=== PATIENT | female | born 1980 | race Caucasian/White ===

== ENCOUNTER → 2020-04-22 | Outpatient (CLI) | payer OTHER ==
--- NOTE | 2020-04-22 14:34 | Diagnostic Imaging Report ---
EXAMINATION: CT Abdomen Pelvis without contrast. TECHNIQUE: Multiple contiguous axial images were obtained through the abdomen and pelvis without the use of intravenous contrast. All CT scans use one or more of the following dose optimizing techniques: automated exposure control, MA and/or KvP adjustment based on a patient size and exam type, or iterative reconstruction. HISTORY: Back pain, fever. COMPARISON: None available. FINDINGS: Lung bases: The lung bases are clear. Solid organs: Diffuse hypoattenuation of the liver which can be seen with hepatic steatosis. The gallbladder is surgically absent. There is no biliary ductal dilation. Pancreas is normal. Spleen is normal. Adrenal glands are normal. There is a 5.6 cm exophytic lesion arising from the posterior left kidney with Hounsfield units slightly greater than that of simple fluid. No hydronephrosis. No visualized renal calculus. Bowel: The stomach and small bowel are normal without obstruction. The colon is unremarkable. The appendix is not visualized but may be surgically absent, as there is suggestion of a surgical staple line in its expected location. Peritoneum: There is no intraperitoneal free fluid or free air. There is mild mesenteric stranding within the right lower quadrant with a few prominent lymph nodes which are not pathologically enlarged. Vasculature: Normal without aneurysm. Musculoskeletal: No suspicious osseous lesion or compression fracture. Pelvis: The uterus is surgically absent. No adnexal mass. The urinary bladder is normal. IMPRESSION: 1. No visualized renal calculus or hydronephrosis. 2. Mild mesenteric stranding with a few prominent lymph nodes in the right lower quadrant. This finding is nonspecific but could be seen with mesenteric adenitis in the appropriate clinical setting. 3. Hepatic steatosis. 4. An indeterminate 5.6 cm exophytic lesion arising from the posterior left kidney. Consider better characterization with renal ultrasound or MRI of the kidneys with IV contrast. Dictated by: Dictated on workstation # [id number]
== END ==
LOC: RAD FS 13:29
PROVIDERS: ATTEND Nurse Practitioner Family
DX: M54.9 Dorsalgia, unspecified (principal); K76.0 Fatty (change of) liver, not elsewhere classified; R59.0 Localized enlarged lymph nodes; R50.9 Fever, unspecified
CPT/HCPCS: 74176

== ENCOUNTER → 2020-04-23 | Outpatient (CLI) | payer OTHER ==
[2020-04-23 11:20] LABS: BILIRUBIN,URINE NEGATIVE (NEGATIVE); COLOR,URINE YELLOW; GLUCOSE, URINE (UA) NEGATIVE (NEGATIVE); KETONES,URINE NEGATIVE (NEGATIVE); NITRITE,URINE NEGATIVE (NEGATIVE); PH,URINE 5.5 (5-9); PROTEIN,URINE NEGATIVE (NEGATIVE)
[2020-04-23 11:21] LABS: BACTERIA,URINE NEGATIVE /HPF; LEUKOCYTE ESTERASE ,URINE NEGATIVE (NEGATIVE); RENAL EPITHELIAL CELLS,URINE RARE /HPF; WBC,URINE RARE /HPF
[2020-04-23 11:22] LABS: HEMATOCRIT 36 % (35-52); HEMOGLOBIN 11.5 G/DL (11.5-16.0); LYMPHOCYTES % (AUTO) 25 % (12-44); MEAN CORPUSCULAR HEMOGLOBIN 27 PG (25-34); MEAN CORPUSCULAR HGB CONC 32 G/DL (32-36); MEAN CORPUSCULAR VOLUME 82 FL (80-99); MEAN PLATELET VOLUME 11.4 FL (7.4-10.4); MONOCYTES % (AUTO) 9 % (0-12); NEUTROPHILS % (AUTO) 64 % (42-75); PLATELET COUNT 231 10^3/uL (130-400); WHITE BLOOD COUNT 6.5 10^3/uL (4.3-11.0)
[2020-04-23 11:23] LABS: BASOPHILS % (AUTO) 0 % (0-10); EOSINOPHILS # (AUTO) 0.1 10^3/uL (0.0-0.3); EOSINOPHILS % (AUTO) 1 % (0-10); LYMPHOCYTES # (AUTO) 1.6 X 10^3 (1.0-4.0); MONOCYTES # (AUTO) 0.6 X 10^3 (0.0-1.0); NEUTROPHILS # (AUTO) 4.2 X 10^3 (1.8-7.8)
== END ==
LOC: LAB FS 10:49
PROVIDERS: ATTEND Nurse Practitioner Family
DX: D72.829 Elevated white blood cell count, unspecified (principal)
CPT/HCPCS: 36415; 81000; 85025; 87088

== ENCOUNTER 2020-05-10 16:11 | Emergency (ER) | payer OTHER ==
--- NOTE | 2020-05-10 16:34 | ED Abdominal Pain ---
General Chief Complaint: Abdominal/GI Problems Stated Complaint: ABD PAIN, DIARRHEA, COUGH Source of Information: Patient History of Present Illness Date Seen by Provider: May 10, 2020 Time Seen by Provider: 16:23 40-year-old female with a past medical history significant for Niesen fundoplication presenting to the emergency department with the complaints of reflux-like symptoms. Patient states for the past 2 days she has had epigastric and esophageal burning that worsens with eating. She has also had associated nausea without vomiting. She notes that she has not vomited since her Niesen fundoplication in 2006. She took Zofran, Carafate, Pepcid prior to coming in the emergency department over the past 2 days with no relief of her symptoms. She notes intermittent chronic reflux-like symptoms, but typically the symptoms resolve with her home therapies. She does note that her previous episodes regarding the burning sensation in her epigastric and throat have felt similar in the past with other episodes. She denies fever. She has dumping syndrome and has persistent diarrhea chronically which is unchanged for her at this time. Of note she did test positive for Covid-19 11 days ago. She reports her only COVID-19 symptoms was a cough. She was started on dexamethasone and aspirin and has been doing well since then. She denies alcohol use, stopped smoking 4 years ago, patient is currently employed as a nurse at the [employer]. No known cardiac history. She denies chest pain, dyspnea.Patient notes decreased appetite and has been consuming only small amounts of liquid food over the past 2 days. Previous surgical history includes appendectomy, cholecystectomy. Allergies and Home Medications Allergies Coded Allergies: No Known Drug Allergies (Unverified , 05/10/20) Home Medications Ondansetron 4 Mg Tab.rapdis, 4 MG PO Q6H PRN for NAUSEA/VOMITING Prescribed by: SUZY THAYER on 05/10/201917 Patient Home Medication List Home Medication List Reviewed: Yes Review of Systems Review of Systems Constitutional: see HPI, weakness Respiratory: Cough Cardiovascular: Denies Chest Pain Gastrointestinal: Abdominal Pain, Diarrhea, Nausea All Other Systems Reviewed Negative Unless Noted: Yes Past Rzhwiql-Pepkzu-Cctxng Hx Patient Social History Recent Foreign Travel: No Contact w/Someone Who Travel: No Physical Exam Vital Signs Vital Signs - First Documented 05/10/20 16:40 Temp 37.0 Pulse 86 Resp 18 B/P (MAP) 148/80 (102) Pulse Ox 100 O2 Delivery Room Air Capillary Refill : Height/Weight/BMI Height: '" Weight: lbs. oz. kg; BMI Method: General Appearance: WD/WN, no apparent distress Neck: supple Respiratory: no respiratory distress, no accessory muscle use Cardiovascular: regular rate, rhythm Gastrointestinal: normal bowel sounds, non tender, soft, no organomegaly, no pulsatile mass Rectal: deferred Extremities: normal inspection Neurologic/Psychiatric: alert, normal mood/affect Skin: normal color, warm/dry Progress/Results/Core Measures Results/Orders Lab Results Laboratory Tests Test 05/10/20 16:49 05/10/20 17:34 Range/Units White Blood Count 8.5 4.3-11.0 10^3/uL Red Blood Count 5.26 4.35-5.85 10^6/uL Hemoglobin 13.9 11.5-16.0 G/DL Hematocrit 43 35-52 % Mean Corpuscular Volume 81 80-99 FL Mean Corpuscular Hemoglobin 26 25-34 PG Mean Corpuscular Hemoglobin Concent 33 32-36 G/DL Red Cell Distribution Width 14.1 10.0-14.5 % Platelet Count 243 130-400 10^3/uL Mean Platelet Volume 11.7 H 7.4-10.4 FL Immature Granulocyte % (Auto) 1 % Neutrophils (%) (Auto) 62 42-75 % Lymphocytes (%) (Auto) 28 12-44 % Monocytes (%) (Auto) 9 0-12 % Eosinophils (%) (Auto) 0 0-10 % Basophils (%) (Auto) 0 0-10 % Neutrophils # (Auto) 5.3 1.8-7.8 X 10^3 Lymphocytes # (Auto) 2.4 1.0-4.0 X 10^3 Monocytes # (Auto) 0.8 0.0-1.0 X 10^3 Eosinophils # (Auto) 0.0 0.0-0.3 10^3/uL Basophils # (Auto) 0.0 0.0-0.1 10^3/uL Immature Granulocyte # (Auto) 0.1 0.0-0.1 10^3/uL Sodium Level 139 135-145 MMOL/L Potassium Level 3.3 L 3.6-5.0 MMOL/L Chloride Level 100 98-107 MMOL/L Carbon Dioxide Level 24 21-32 MMOL/L Anion Gap 15 H 5-14 MMOL/L Blood Urea Nitrogen 8 7-18 MG/DL Creatinine 0.69 0.60-1.30 MG/DL Estimat Glomerular Filtration Rate > 60 BUN/Creatinine Ratio 12 Glucose Level 107 H 70-105 MG/DL Calcium Level 9.6 8.5-10.1 MG/DL Corrected Calcium 8.5-10.1 MG/DL Total Bilirubin 0.3 0.1-1.0 MG/DL Aspartate Amino Transf (AST/SGOT) 65 H 5-34 U/L Alanine Aminotransferase (ALT/SGPT) 126 H 0-55 U/L Alkaline Phosphatase 81 40-136 U/L Troponin I < 0.30 <0.30 NG/ML Total Protein 7.9 6.4-8.2 GM/DL Albumin 4.7 H 3.2-4.5 GM/DL Lipase 51 8-78 U/L Serum Test, Qualitative NEGATIVE NEGATIVE Urine Color YELLOW Urine Clarity CLEAR Urine pH 6.5 5-9 Urine Specific [place] <1.005 1.016-1.022 Urine Protein NEGATIVE NEGATIVE Urine Glucose (UA) NEGATIVE NEGATIVE Urine Ketones NEGATIVE NEGATIVE Urine Nitrite NEGATIVE NEGATIVE Urine Bilirubin NEGATIVE NEGATIVE Urine Urobilinogen 0.2 < = 1.0 MG/DL Urine Leukocyte Esterase TRACE H NEGATIVE Urine RBC (Auto) TRACE H NEGATIVE Urine RBC RARE /HPF Urine WBC 0-2 /HPF Urine Squamous Epithelial Cells 0-2 /HPF Urine Crystals NONE /LPF Urine Bacteria NONE /HPF Urine Casts NONE /LPF Urine Mucus NEGATIVE /LPF Urine Culture Indicated NO My Orders Orders - SUZY THAYER MD Comprehensive Metabolic Panel (05/10/20 16:42) Lipase (05/10/20 16:42) Hcg,Qualitative Serum (05/10/20 16:42) Ed Iv/Invasive Line Start (05/10/20 16:42) Cbc With Automated Diff (05/10/20 16:42) Ns Iv 1000 Ml (Sodium Chloride 0.9%) (05/10/20 16:45) Ondansetron Injection (Zofran Injectio (05/10/20 16:45) Lidocaine 2% Viscous 15 Ml (Xylocaine Vi (05/10/20 16:45) Antacid Suspension (Mylanta Suspension (05/10/20 16:45) Famotidine Injection (Pepcid Injection) (05/10/20 16:42) Troponin I Fs (05/10/20 16:48) Ekg Tracing (05/10/20 16:48) Acetone,Urine (05/10/20 17:27) D5 1/2 Ns 1000 Ml Iv Solution (Dextrose (05/10/20 17:30) Potassium Chloride (Tablet) (K Dur Table (05/10/20 17:30) Ua Culture If Indicated (05/10/20 17:28) Medications Given in ED Current Medications Medications Dose Ordered Sig/Denice Route Start Time Stop Time Status Last Admin Dose Admin Al Hydrox/Mg Hydrox/Simethicone 30 ml ONCE ONCE PO 05/10/20 16:45 05/10/20 16:47 DC 05/10/20 17:00 30 ML Dextrose/Sodium Chloride 1,000 ml @ 250 mls/hr Q4H ONCE IV 05/10/20 17:30 05/10/20 19:16 DC 05/10/20 18:34 250 MLS/HR Lidocaine HCl 15 ml ONCE ONCE PO 05/10/20 16:45 05/10/20 16:47 DC 05/10/20 17:00 15 ML Ondansetron HCl 4 mg ONCE ONCE IVP 05/10/20 16:45 05/10/20 16:47 DC 05/10/20 16:59 4 MG Potassium Chloride 40 meq ONCE ONCE PO 05/10/20 17:30 05/10/20 17:34 DC 05/10/20 18:35 40 MEQ Vital Signs/I&O 05/10/20 05/10/20 16:40 19:16 Temp 37.0 37.0 Pulse 86 82 Resp 18 16 B/P (MAP) 148/80 (102) 128/86 (102) Pulse Ox 100 100 O2 Delivery Room Air Room Air Progress Progress Note : Progress Note Patient's examination was reassuring. She had reassuring vital signs. Symptoms sound to be fairly consistent with esophageal reflux disease and consistent with her previous episodes, but just more severe. Symptomatic medications were ordered including 1 L normal saline, Zofran, oral Mylanta and lidocaine. Patient was recently started on Decadron and aspirin for her Covid infection which could be contributing to possible gastritis. She had a soft abdomen without tenderness, guarding or rigidity. Previous surgical history including appendectomy and cholecystectomy. Low suspicion for intra-abdominal etiology. Will hold on obtaining CT scan at this time. Laboratory work was ordered including basic labs, lipase, EKG and troponin. Low suspicion for ACS. 1736: Labs consistent wit an elevated anion gap, glucose of 107, slightly elevated LFTs likely fatty liver. She has soft abdominal examination. 40 mEq of oral potassium was ordered along with 500 cc of D5 half NS. 1824: Patient was reassessed and reported that her symptoms had improved. She still did have some epigastric burning. I suspect her steroids and aspirin are likely contributing. Given that she has nearly completely recovered from her Covid infection I instructed her to discontinue the Decadron and aspirin as this could be contributing to gastritis. Patient was ready to be discharged home and will follow up with her primary care provider as needed. I instructed her to discontinue the aspirin and Decadron. She was continue to use her home medications. I refilled her Zofran prescription. All questions were answered prior to discharge. Patient was in agreement with the plan of care. EKG : Comment EKG obtained at 1649 on 05/10/[address] Suzy Thayer at 1658 significant for sinus rhythm rate of 76, QTc of 478, normal QRS, normal AL, no acute ischemic changes, normal axis, no evidence of ventricular hypertrophy. Departure Impression Primary Impression: Reflux gastritis Additional Impression: Dehydration Disposition: 01 HOME, SELF-CARE Condition: Improved Departure-Patient Inst. Decision time for Depature: 19:13 Referrals: CARLOS HUGO APRN (PCP/Family) Primary Care Physician Patient Instructions: Acid Reflux and GERD in Adults (DC) Add. Discharge Instructions: You were seen in the emergency department for abdominal pain, nausea. Your symptoms are likely due to reflux and possibly gastritis which is inflammation of the stomach lining. This could be due to your recent aspirin and steroid use which you are to discontinue at this time. Please continue using your medications that you have been using including Carafate, Pepcid, lansoprazole, Maalox, Tums. Please follow-up with your primary care provider next week if your symptoms have not improved. You likely are dehydrated and were given IV fluids in the emergency department. If you develop any new or concerning symptoms, please contact your primary care provider or return to the emergency department immediately to be evaluated. All discharge instructions reviewed with patient and/or family. Voiced understanding. Scripts Ondansetron (Ondansetron Odt) 4 Mg Tab.rapdis 4 MG PO Q6H PRN for NAUSEA/VOMITING, #8 TAB 0 Refills Prov: SUZY THAYER MD 05/10/20 SUZY THAYER MD May 10, 2020 16:34
[2020-05-10] MEDS ORDERED: FAMOTIDINE 20MG/2ML IV (PEPCID) IV STA (16:42)
[2020-05-10] MEDS ORDERED: ONDANSETRON 4 MG/2 ML (SDV) Z0FRAN IVP ONE (16:45)
[2020-05-10] MEDS ORDERED: ANTACID SUSP 30 ML UDC (MYLANTA) PO ONE (16:45)
[2020-05-10] MEDS ORDERED: LIDOCAINE 2% VISCOUS 15 ML UDC PO ONE (16:45)
[2020-05-10] MEDS ORDERED: NS IV 1000 ML 1,000 ML IV SCH (16:45)
[2020-05-10 17:00] LABS: HEMATOCRIT 43 % (35-52); HEMOGLOBIN 13.9 G/DL (11.5-16.0); MEAN CORPUSCULAR HEMOGLOBIN 26 PG (25-34); WHITE BLOOD COUNT 8.5 10^3/uL (4.3-11.0)
[2020-05-10 17:01] LABS: BASOPHILS % (AUTO) 0 % (0-10); EOSINOPHILS % (AUTO) 0 % (0-10); LYMPHOCYTES # (AUTO) 2.4 X 10^3 (1.0-4.0); LYMPHOCYTES % (AUTO) 28 % (12-44); MEAN CORPUSCULAR HGB CONC 33 G/DL (32-36); MEAN CORPUSCULAR VOLUME 81 FL (80-99); MEAN PLATELET VOLUME 11.7 FL (7.4-10.4); MONOCYTES # (AUTO) 0.8 X 10^3 (0.0-1.0); MONOCYTES % (AUTO) 9 % (0-12); NEUTROPHILS # (AUTO) 5.3 X 10^3 (1.8-7.8); NEUTROPHILS % (AUTO) 62 % (42-75); PLATELET COUNT 243 10^3/uL (130-400)
[2020-05-10 17:14] LABS: ALANINE AMINOTRANSFERASE 126 U/L (0-55); ALBUMIN 4.7 GM/DL (3.2-4.5); ALKALINE PHOSPHATASE 81 U/L (40-136); BILIRUBIN,TOTAL 0.3 MG/DL (0.1-1.0); BUN/CREATININE RATIO 12; CALCIUM 9.6 MG/DL (8.5-10.1); CARBON DIOXIDE 24 MMOL/L (21-32); CHLORIDE 100 MMOL/L (98-107); CREATININE SERUM 0.69 MG/DL (0.60-1.30); GFR ESTIMATED > 60; GLUCOSE 107 MG/DL (70-105); LIPASE 51 U/L (8-78); POTASSIUM 3.3 MMOL/L (3.6-5.0); SODIUM 139 MMOL/L (135-145); TOTAL PROTEIN 7.9 GM/DL (6.4-8.2)
[2020-05-10] MEDS ORDERED: KCL 20 MEQ TAB (K-DUR) PO ONE (17:30)
[2020-05-10] MEDS ORDERED: D5 1/2 NS 1000 ML IV SOLUTION 1,000 ML IV ONE (17:30)
[2020-05-10 18:32] LABS: BILIRUBIN,URINE NEGATIVE (NEGATIVE); CLARITY,URINE CLEAR; COLOR,URINE YELLOW; GLUCOSE, URINE (UA) NEGATIVE (NEGATIVE); KETONES,URINE NEGATIVE (NEGATIVE); LEUKOCYTE ESTERASE ,URINE TRACE (NEGATIVE); NITRITE,URINE NEGATIVE (NEGATIVE); PH,URINE 6.5 (5-9); PROTEIN,URINE NEGATIVE (NEGATIVE); RBC,URINE RARE /HPF; SQUAMOUS EPITHELIAL CELL,UR 0-2 /HPF; WBC,URINE 0-2 /HPF
[2020-05-10 19:16] VITALS: BP 128/86
[2020-05-10] MEDS ORDERED: ONDA4TAB11 PO (19:18)
== END 2020-05-10 19:16 | disposition home or self-care (01) ==
LOC: EDUNIT# 16:11 → ER 16:12 → ER FS 19:16
DX: K29.60 Other gastritis without bleeding (principal); E86.0 Dehydration; Z87.891 Personal history of nicotine dependence
CPT/HCPCS: 36415; 80053; 81000; 83690; 84484; 84703; 85025; 93005

== ENCOUNTER → 2020-05-14 | Outpatient (CLI) | payer OTHER ==
[~2020-05-14] MED LIST: ONDA4TAB11 PO
[2020-05-14 12:45] LABS: BASOPHILS % (AUTO) 0 % (0-10); EOSINOPHILS % (AUTO) 2 % (0-10); HEMATOCRIT 39 % (35-52); HEMOGLOBIN 12.5 G/DL (11.5-16.0); LYMPHOCYTES # (AUTO) 2.3 X 10^3 (1.0-4.0); LYMPHOCYTES % (AUTO) 27 % (12-44); MEAN CORPUSCULAR HEMOGLOBIN 26 PG (25-34); MEAN CORPUSCULAR HGB CONC 32 G/DL (32-36); MEAN CORPUSCULAR VOLUME 82 FL (80-99); MEAN PLATELET VOLUME 11.6 FL (7.4-10.4); MONOCYTES # (AUTO) 0.6 X 10^3 (0.0-1.0); MONOCYTES % (AUTO) 7 % (0-12); NEUTROPHILS # (AUTO) 5.6 X 10^3 (1.8-7.8); NEUTROPHILS % (AUTO) 64 % (42-75); PLATELET COUNT 256 10^3/uL (130-400); WHITE BLOOD COUNT 8.8 10^3/uL (4.3-11.0)
[2020-05-14 12:46] LABS: EOSINOPHILS # (AUTO) 0.2 10^3/uL (0.0-0.3)
[2020-05-14 13:05] LABS: BUN/CREATININE RATIO 8; CALCIUM 10.1 MG/DL (8.5-10.1); CARBON DIOXIDE 26 MMOL/L (21-32); CHLORIDE 103 MMOL/L (98-107); CREATININE SERUM 0.62 MG/DL (0.60-1.30); GFR ESTIMATED > 60; GLUCOSE 117 MG/DL (70-105); POTASSIUM 4.2 MMOL/L (3.6-5.0); SODIUM 140 MMOL/L (135-145)
== END ==
LOC: LAB FS 12:27
PROVIDERS: ATTEND Nurse Practitioner Family
DX: R19.7 Diarrhea, unspecified (principal)
CPT/HCPCS: 36415; 80048; 84443; 85025

== ENCOUNTER 2020-10-16 10:24 | Outpatient (CLI) | payer OTHER ==
[2020-10-16] MEDS ORDERED: MTP25TSR PO (15:00)
[2020-10-16] MEDS ORDERED: PANT40TA52 PO (15:00)
[2020-10-16] MEDS ORDERED: HYDR25TA4 PO (15:00)
[2020-10-16] MEDS ORDERED: SEMA1PEN3 SQ (15:00)
[2020-10-16] MEDS ORDERED: METF-399 PO (15:00)
[2020-10-16] MEDS ORDERED: SUCR1TAB PO (15:00)
== END 2020-10-23 09:00 | disposition home or self-care (01) ==
LOC: PREOP 10:24
PROVIDERS: ATTEND Surgery
DX: Z01.818 Encounter for other preprocedural examination (principal); Z12.11 Encounter for screening for malignant neoplasm of colon; K21.9 Gastro-esophageal reflux disease without esophagitis; R19.4 Change in bowel habit

== ENCOUNTER 2020-10-24 11:17 | Day surgery (SDC) | payer OTHER ==
[~2020-10-24] VITALS: Ht 170.2 cm; Wt 131.5 kg
[~2020-10-24 11:17] MED LIST changes: +HYDR25TA4 PO; +METF-399 PO; +MTP25TSR PO; +PANT40TA52 PO; +SEMA1PEN3 SQ; +SUCR1TAB PO
[2020-10-24] MEDS ORDERED: LACTATED RINGERS 1,000 ML IV STA (11:46)
[2020-10-24] MEDS ORDERED: LACTATED RINGERS 1,000 ML IV ONE (11:46)
--- NOTE | 2020-10-24 11:46 | Conscious Sedation/ASA ---
Conscious Sedation Pre-Proced ASA Score 2 For ASA 3 and 4: Consider anesthesia and medical clearance. Also, for patients with a history of failed moderate sedation consider anesthesia. Airway Lungs Heart ASA score ASA 1: a normal healthy patient ASA 2: a patient with a mild systemic disease (mid diabetes, controlled hypertension, obesity ASA 3: a patient with a severe systemic disease that limits activity (angina, COPD, prior Myocardial infarction) ASA 4: a patient with an incapacitating disease that is a constant threat to life (CHF, renal failure) ASA 5: a moribund patient not expected to survive 24 hrs. (ruptured aneurysm) ASA 6: a declared brain- patient whose organs are being harvested. For emergent operations, add the letter E after the classification Mallampati Classification Grade 2 Sedation Plan Analgesia, Amnesia, Plan communicated to team members, Discussed options with patient/fam, Discussed risks with patient/fam The patient is an appropriate candidate to undergo the planned procedure, sedation, and anesthesia. The patient immediately re-assessed prior to indication. SHAQUILLE SWANSON MD October 24, 2020 11:46
--- NOTE | 2020-10-24 11:48 | Progress Note-Pre Operative ---
Pre-Operative Progress Note H&P Reviewed The H&P was reviewed, patient examined and no changes noted. Date Seen by Provider: October 24, 2020 Time Seen by Provider: 11:30 Date H&P Reviewed: October 24, 2020 Time H&P Reviewed: :30 Pre-Operative Diagnosis: GERD, change bowel habits SHAQUILLE SWANSON MD October 24, 2020 11:48
--- NOTE | 2020-10-24 11:49 | Discharge Inst-Surgical ---
D/C Lap Instructions-KIDO New, Converted, or Re-Newed RX: RX on Chart Follow Up Appt in 2 weeks Activity as tolerated High Fiber Diet 25g or more per day Avoid Alcohol, Caffeine, Spicy [place] and Acid foods. Drink 64 fluid oz or more of fluids per day. Symptoms to Report: Fever over 101 degree F, Nausea/Vomiting If any problems/questions: Contact your physician or go to Emergency Room SHAQUILLE SWANSON MD October 24, 2020 11:49
[2020-10-24 12:00] VITALS: BP 138/75
[2020-10-24] MEDS ORDERED: ACETAMINOPHEN 325 MG TABLET PO PRN (12:00)
[2020-10-24] MEDS ORDERED: HYDROcodone/APAP 5 MG/325 MG (LORTAB) TAB PO PRN (12:00)
[2020-10-24] MEDS ORDERED: LIDOCAINE JELLY 2% 6 ML SYRINGE MM PRN (12:00)
[2020-10-24] MEDS ORDERED: morphine INJ 10 MG/ML 1ML (SYR OR VIAL) IVP PRN ×2 (12:00)
[2020-10-24] MEDS ORDERED: HURRICAINE EXT TUBE (BENZOCAINE) XX PRN (12:00)
[2020-10-24] MEDS ORDERED: ONDANSETRON 4 MG/2 ML (SDV) Z0FRAN IVP PRN (12:00)
[2020-10-24] MEDS ORDERED: PROPOFOL INJECTION 50 ML IV ONE ×2 (12:38→13:22)
[2020-10-24] MEDS ORDERED: MIDAZOLAM 5 MG/5 ML (VERSED) VIAL ONE (12:38)
[2020-10-24] MEDS ORDERED: LIDOCAINE JELLY 2% 6 ML SYRINGE ONE (13:14)
[2020-10-24 13:50] VITALS: BP 110/62
[2020-10-24 13:55] VITALS: BP 137/92
--- NOTE | 2020-10-24 14:19 | Progress Note-Post Operative ---
Post-Operative Progess Note Surgeon (s)/Restaurant Delivery Driver (s) Surgeon SHAQUILLE SWANSON MD Restaurant Delivery Driver: none Pre-Operative Diagnosis GERD, change bowel habits Post-Operative Diagnosis reflux esophagitis(stage 2), mild distal esophageal stricture, moderate gastritis. normal colon and rectum Procedure & Operative Findings Date of Procedure 10/24/20 Procedure Performed/Findings EGD with bx and balloon dilatation. colonoscopy. Anesthesia Type mac Estimated Blood Loss Estimated blood loss (mL): minimal Specimens/Packing Specimens Removed ge jxn, antrum SHAQUILLE SWANSON MD October 24, 2020 14:19
[2020-10-24 14:20] VITALS: BP 124/62
[2020-10-24 14:21] VITALS: BP 137/92
[2020-10-24 14:25] VITALS: BP 137/92
--- NOTE | 2020-10-24 14:54 | Anesthesia-General Post-Op ---
MAC Patient Condition Mental Status/LOC: Same as Preop Cardiovascular: Satisfactory Nausea/Vomiting: Absent Respiratory: Satisfactory Pain: Controlled Complications: Absent Post Op Complications Complications None Follow Up Care/Instructions Patient Instructions None needed. Anesthesiology Discharge Order Discharge Order Patient is doing well, no complaints, stable vital signs, no apparent adverse anesthesia problems. No complications reported per nursing. SAGAR CORBETT CRNA October 24, 2020 14:54
--- NOTE | 2020-10-24 18:27 | OPERATIVE REPORT ---
DATE OF SERVICE: 10/24/2020 ATTENDING PRIMARY TOP CAGER: Alie Lebron. PREOPERATIVE DIAGNOSES: Gastroesophageal reflux disease, peptic ulcer disease with history of H. pylori gastritis, change in bowel habits. POSTOPERATIVE DIAGNOSES: Reflux esophagitis stage II, mild distal esophageal stricture, intact hiatal hernia as well as a Maureen fundoplication, moderate gastritis. No formal ulcerations. Normal colon and rectum. PROCEDURE: EGD with biopsy and balloon dilatation and colonoscopy. SURGEON: Shaquille Swanson MD. ANESTHESIA: Monitored anesthesia care. ESTIMATED BLOOD LOSS: Minimal. FINDINGS: Reflux esophagitis stage II, mild distal esophageal stricture, intact hiatal hernia as well as a Maureen fundoplication, moderate gastritis. No formal ulcerations. Normal colon and rectum. DISPOSITION: The patient tolerated the procedure well. INDICATIONS: The patient is a 40-year-old female who has had a longstanding history of gastroesophageal reflux disease and underwent a hiatal hernia repair as well as a Maureen fundoplication along with a laparoscopic cholecystectomy in 2006. She states that since that time, she has had issues with loose stools on an intermittent basis. She also states that she has had worsening episodes of gastritis with epigastric burning sensation usually at night and upon further questioning, she also reports that she has had dysphagia, specifically for dry breads and crackers as well as a lean meats. DESCRIPTION OF PROCEDURE: The patient was brought to the endoscopy suite, laid in the left lateral decubitus position with head slightly elevated. After adequate IV pain and sedative medications and monitored anesthesia care, the mouthpiece was applied. The endoscope was placed in the mouth, visualizing the pharynx and hypopharyngeal region. Vocal cords, epiglottis and vallecula identified and appeared to be normal. Endoscope was then gently intubated into the esophageal opening and esophagus insufflated. The endoscope was then advanced to the first, second and third portion of esophagus at the level of the GE junction, a reflux esophagitis stage II identified. There was a mild distal esophageal stricture also identified. The endoscope was then advanced into the stomach and endoscope retroflexed visualizing an intact previous hiatal hernia repair as well as a previous Maureen fundoplication. There was a moderate severity gastritis. There were no formal ulcerations, polyps, or any neoplasms. A biopsy was taken of the antrum to rule out H. pylori with visualization of good hemostasis. The endoscope was then advanced through the pylorus and the first and second portion of the duodenum, which appeared normal with no ulcerations or distal obstructions. We then proceeded with balloon dilatation of the distal esophageal stricture and the balloon was placed into the stomach and pulled back to the area of the stricture. We then proceeded with 2s then 4s, then 6s atmospheres of pressure or 20 mm in luminal diameter with moderate resistance and left this in place for 60 seconds. The balloon was desufflated and removed with visualization of good hemostasis as well as no mucosal tears. The endoscope was then slowly withdrawn while taking a second look and suctioning of residual air with no additional findings. A digital rectal examination was performed, which did not reveal any significant hemorrhoids. Normal sphincter tone and there were no palpable masses. The endoscope was then intubated to the anus and rectum gently insufflated. The endoscope was then advanced to the valves of [place] of the rectum with no polyps or any neoplasms identified. We then proceeded through the sigmoid colon where no diverticulosis identified. The endoscope was then advanced through the remainder of the descending, transverse and ascending colon to the cecum. These segments were normal. There were no polyps or any neoplasms identified as well as no mucosal inflammatory changes. The endoscope was then slowly withdrawn while taking a second look and suctioning of residual air with no additional findings. The patient tolerated the procedure well. We will recommend the necessary lifestyle and diet accommodation including small and more frequent meals, avoidance of eating at night as well as head elevation while lying supine. She is also on Protonix 40 mg b.i.d. which we will have her continue. She may also restart Ozempic at her previous dosage as well. For the colon we will recommend incorporation of a fiber supplement, which should equal or exceed 25 grams daily to promote soft stools on a daily basis; however, not insight liquid stools and diarrhea. We will also give her a prescription for Questran to be taken p.r.n. basis for diarrhea or postprandial diarrhea. Job ID: [id number] DocumentID: [id number] Dictated Date: 10/24/2020 13:58:18 Park Superintendent Date: 10/24/2020 18:26:34 Dictated By: SHAQUILLE SWANSON MD
== END 2020-10-24 14:25 | disposition home or self-care (01) ==
LOC: ENDO 11:17
PROVIDERS: ATTEND Surgery
DX: K21.00 Gastro-esophageal reflux disease with esophagitis, without bleeding (principal); K29.50 Unspecified chronic gastritis without bleeding; K22.2 Esophageal obstruction; K44.9 Diaphragmatic hernia without obstruction or gangrene; I10 Essential (primary) hypertension; F41.9 Anxiety disorder, unspecified; E11.9 Type 2 diabetes mellitus without complications; E66.01 Morbid (severe) obesity due to excess calories; Z68.42 Body mass index [BMI] 45.0-49.9, adult; Z79.899 Other long term (current) drug therapy
CPT/HCPCS: 82947

== ENCOUNTER 2022-08-05 09:09 | Emergency (ER) | payer OTHER ==
[~2022-08-05] VITALS: Ht 170 cm; Wt 127.0 kg
[2022-08-05 09:45] LABS: BASOPHILS % (AUTO) 0 % (0-10); EOSINOPHILS % (AUTO) 0 % (0-10); HEMATOCRIT 39 % (35-52); HEMOGLOBIN 12.5 g/dL (11.5-16.0); LYMPHOCYTES # (AUTO) 2.6 10^3/uL (1.0-4.0); LYMPHOCYTES % (AUTO) 27 % (12-44); MEAN CORPUSCULAR HEMOGLOBIN 26 pg (25-34); MEAN CORPUSCULAR HGB CONC 33 g/dL (32-36); MEAN CORPUSCULAR VOLUME 81 fL (80-99); MEAN PLATELET VOLUME 11.2 fL (9.0-12.2); MONOCYTES # (AUTO) 0.7 10^3/uL (0.0-1.0); MONOCYTES % (AUTO) 7 % (0-12); NEUTROPHILS # (AUTO) 6.4 10^3/uL (1.8-7.8); NEUTROPHILS % (AUTO) 65 % (42-75); PLATELET COUNT 317 10^3/uL (130-400); WHITE BLOOD COUNT 9.8 10^3/uL (4.3-11.0)
[2022-08-05] MEDS ORDERED: LACTATED RINGERS 1,000 ML IV ONE (09:45)
[2022-08-05 09:47] LABS: POTASSIUM 2.9 MMOL/L (3.6-5.0)
[2022-08-05 09:48] LABS: CALCIUM 10.6 MG/DL (8.5-10.1)
[2022-08-05 09:52] LABS: CREATININE SERUM 0.86 MG/DL (0.60-1.30)
[2022-08-05 09:55] LABS: MAGNESIUM 1.7 MG/DL (1.6-2.4)
[2022-08-05 10:15] LABS: TSH (THYROID ANALYZER) 1.41 UIU/ML (0.35-4.94)
--- NOTE | 2022-08-05 10:26 | ED Cardiac General ---
History of Present Illness General Chief Complaint: Cardiac/General Problems Stated Complaint: ABNORMAL EKG Nursing Triage Note: PATIENT AMBULATORY TO ROOM 5 W C/O ABNORMAL EKG AT [facility]. PATIENT STATES SHE'S ON METOPROLOL FOR ANXIETY AND HYPERTENSION. PT HAS HAD PALPITATIONS AND INCREASED HR ALL WEEK. PT RECENTLY STARTED MONJARO. HX OF PVC'S AND PAC'S. Source: patient, family, old records Exam Limitations: no limitations (RODY MAI) History of Present Illness Date Seen by Provider: Aug 05, 2022 Time Seen by Provider: 09:20 Initial Comments Ms. Erwin is 42 yo F with PMH significant for T2DM, HTN and GERD who presents today with 5 day Hx of tachycardia with palpatations along with sub-zypoid pressure & discomfort following self-injection with Mounjaro Satru evening. She has also been experiencing frequent diarrhea while taking Mounjaro and has previously required fluid resuscitation and drank a sports drink to correct her current issue with no noticeable improvement. The Pt visited her PCP Alie Rodriguez this morning with her concerns where an EKG was performed which showed irregular findings prompting the pts referral to the ED today. Upon arrival today the pt was very anxious regarding the possibility of experiencing heart problems but states that she has no chest pain, only slight discomfort sub-zyphoid which she attributes to her GERD and previous Maureen fundoplication surgery. She denies N/V/F/C diaphoresis or pain radiating down her arm. Timing/Duration: 5-6 days Severity: mild Location: epigastric Activities at Onset: emotional stress, other (folllowing injection of Mounjaro) Prior CP/Workup: no prior chest pain, no prior cardiac workup Modifying Factors: improves with movement, improves with palpation, improves with rest Associated Systoms: No Chest Pain, No Cough, No Diaphoresis, No Fever/Chills, No Nausea/Vomiting, No Shortness of Air, No Syncope (RODY MAI) Allergies and Home Medications Allergies Coded Allergies: No Known Drug Allergies (Unverified , 05/10/20) Patient Home Medication List Home Medication List Reviewed: Yes (COLIN GEORGE MD) Hydrochlorothiazide (Hydrochlorothiazide) 25 Mg Tablet, 25 MG PO DAILY, (Reported) Entered as Reported by: ADALGISA MATT on 5/13/21 1500 Metformin HCl (Metformin HCl) 1,000 Mg Tablet, 1,000 MG PO DAILY, (Reported) Entered as Reported by: ADALGISA MATT on 10/16/201499 Metoprolol Succinate (Metoprolol Succinate) 25 Mg Tab.er.24h, 25 MG PO DAILY, (Reported) Entered as Reported by: ADALGISA MATT on 10/16/201499 Pantoprazole Sodium (Pantoprazole Sodium) 40 Mg Tablet.dr, 40 MG PO DAILY, (Reported) Entered as Reported by: ADALGISA MATT on 10/16/201499 Semaglutide (Ozempic) 1 Mg/0.75 Ml Pen.injctr, 1 MG SQ DAILY, (Reported) Entered as Reported by: ADALGISA MATT on 10/16/201499 Sucralfate (Sucralfate) 1 Gm Tablet, 1 GM PO BID, (Reported) Entered as Reported by: ADALGISA MATT on 10/16/201499 Review of Systems Review of Systems Constitutional: No chills, No diaphoresis, No dizziness, No fever EENTM: No Blurred Vision, No Double Vision Respiratory: Denies Cough, Denies Shortness of Air Cardiovascular: Denies Chest Pain; Irregular Heart Rate, Palpitations; Denies Syncope Gastrointestinal: Denies Abdominal Pain; Diarrhea; Denies Nausea, Denies Vomi ting Genitourinary: Denies Incontinence, Denies Urgency Musculoskeletal: No back pain, No muscle pain Skin: No change in color, No pruritus, No rash Psychiatric/Neurological: Anxiety; Denies Depressed, Denies Headache, Denies Paresthesia, Denies Tremors Endocrine: Denies Excessive Sweating, Denies Increased Urine Hematologic/Lymphatic: Denies Easy Bruising, Denies Swollen Glands (RODY MAI) Past Qvfzqic-Tqbiia-Ucxnbs Hx Patient Social History Tobacco Use?: No Smoking Status: Former Smoker (17 pack/yr hx) Substance use?: No Alcohol Use?: No (RODY MAI) Immunizations Up To Date COVID19 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 (RODY MAI) Seasonal Allergies Seasonal Allergies: No (RODY MAI) Past Medical History Surgeries: Yes (Maureen-fundoscopy) Appendectomy, Section, Gallbladder, Hysterectomy, Orthopedic Respiratory: No Cardiac: No Neurological: No Genitourinary: No Gastrointestinal: Yes Gastroesophageal Reflux Musculoskeletal: No Endocrine: Yes Diabetes, Non-Insulin dep HEENT: No Loss of Vision: Denies Cancer: No Psychosocial: Yes Anxiety Integumentary: No Blood Disorders: No (RODY MAI) Physical Exam Vital Signs Vital Signs - First Documented 08/05/22 09:17 Temp 36.9 Pulse 99 Resp 24 B/P (MAP) 113/57 (75) Pulse Ox 100 O2 Delivery Room Air (COLIN GEORGE MD) Vital Signs Capillary Refill : Less Than 3 Seconds (RODY MAI) Height, Weight, BMI Height: '" Weight: lbs. oz. kg; 43.00 BMI Method: General Appearance: WD/WN, Anxious, Obese HEENT: PERRL/EOMI Neck: Full Range of Motion, Non Tender, Supple Respiratory: Lungs Clear, Normal Breath Sounds, No Accessory Muscle Use, No Respiratory Distress Cardiovascular: No Edema, Tachycardia Gastrointestinal: Normal Bowel Sounds, Non Tender, Soft Extremity: Normal Range of Motion, No Calf Tenderness Neurologic/Psychiatric: Alert, Oriented x3, No Motor/Sensory Deficits, grey roll man II- XII Norm as Tested Skin: Normal Color, Warm/Dry Lymphatic: No Adenopathy (RODY MAI) Progress/Results/Core Measures Results/Orders Lab Results Laboratory Tests Test 08/05/22 09:29 Range/Units White Blood Count 9.8 4.3-11.0 10^3/uL Red Blood Count 4.76 3.80-5.11 10^6/uL Hemoglobin 12.5 11.5-16.0 g/dL Hematocrit 39 35-52 % Mean Corpuscular Volume 81 80-99 fL Mean Corpuscular Hemoglobin 26 25-34 pg Mean Corpuscular Hemoglobin Concent 33 32-36 g/dL Red Cell Distribution Width 15.5 H 10.0-14.5 % Platelet Count 317 130-400 10^3/uL Mean Platelet Volume 11.2 9.0-12.2 fL Immature Granulocyte % (Auto) 0 % Neutrophils (%) (Auto) 65 42-75 % Lymphocytes (%) (Auto) 27 12-44 % Monocytes (%) (Auto) 7 0-12 % Eosinophils (%) (Auto) 0 0-10 % Basophils (%) (Auto) 0 0-10 % Neutrophils # (Auto) 6.4 1.8-7.8 10^3/uL Lymphocytes # (Auto) 2.6 1.0-4.0 10^3/uL Monocytes # (Auto) 0.7 0.0-1.0 10^3/uL Eosinophils # (Auto) 0.0 0.0-0.3 10^3/uL Basophils # (Auto) 0.0 0.0-0.1 10^3/uL Immature Granulocyte # (Auto) 0.0 0.0-0.1 10^3/uL Sodium Level 138 135-145 MMOL/L Potassium Level 2.9 L 3.6-5.0 MMOL/L Chloride Level 98 98-107 MMOL/L Carbon Dioxide Level 27 21-32 MMOL/L Anion Gap 13 5-14 MMOL/L Blood Urea Nitrogen 10 7-18 MG/DL Creatinine 0.86 0.60-1.30 MG/DL Estimat Glomerular Filtration Rate 88 BUN/Creatinine Ratio 12 Glucose Level 179 H 70-105 MG/DL Calcium Level 10.6 H 8.5-10.1 MG/DL Magnesium Level 1.7 1.6-2.4 MG/DL Troponin I < 0.028 <0.028 NG/ML TSH [place] Testing 1.41 0.35-4.94 UIU/ML (COLIN GEORGE MD) My Orders Orders - COLIN GEORGE MD Ekg Tracing (08/05/22 09:19) Monitor-Rhythm Ecg Trace Only (08/05/22 09:19) Basic Metabolic Panel (08/05/22 09:39) Cbc With Automated Diff (08/05/22 09:39) Magnesium (08/05/22 09:39) Thyroid Analyzer (08/05/22 09:39) Lactated Ringers (Lr 1000 Ml Iv Solution (08/05/22 09:45) Troponin I [place] (08/05/22 09:56) Ed Iv/Invasive Line Start (08/05/22 10:28) Ns Iv 500 Ml (Sodium Chloride 0.9%) (08/05/22 10:30) Potassium Cl 10meq/50ml Ivpb (Kcl 10 Meq (08/05/22 10:30) Potassium Chloride (Tablet) (Klor Con Ta (08/05/22 11:30) Ns Iv 500 Ml (Sodium Chloride 0.9%) (08/05/22 11:45) Acetaminophen Tablet (Tylenol Tablet) (08/05/22 11:45) (COLIN GEORGE MD) Medications Given in ED Current Medications Medications Dose Ordered Sig/Denice Route Start Time Stop Time Status Last Admin Dose Admin Acetaminophen 1,000 mg ONCE ONCE PO 08/05/22 11:45 08/05/22 11:46 DC 08/05/22 11:49 1,000 MG Lactated Ringer's 1,000 ml @ 0 mls/hr Q0M ONCE IV 08/05/22 09:45 08/05/22 09:46 DC 08/05/22 09:45 1,000 MLS/HR Potassium Chloride 20 meq ONCE ONCE PO 08/05/22 11:30 08/05/22 11:31 DC 08/05/22 11:50 20 MEQ Potassium Chloride 50 ml @ 50 mls/hr ONCE ONCE IV 08/05/22 10:30 08/05/22 11:29 DC 08/05/22 10:53 50 MLS/HR Sodium Chloride 500 ml @ 0 mls/hr Q0M ONCE IV 08/05/22 10:30 08/05/22 10:31 DC 08/05/22 10:53 500 MLS/HR Sodium Chloride 500 ml @ 0 mls/hr Q0M ONCE IV 08/05/22 11:45 08/05/22 11:46 DC 08/05/22 11:38 500 MLS/HR (COLIN GEORGE MD) Vital Signs/I&O 08/05/22 08/05/22 09:17 12:15 Temp 36.9 Pulse 99 79 Resp 24 20 B/P (MAP) 113/57 (75) 142/84 Pulse Ox 100 99 O2 Delivery Room Air Room Air (COLIN GEORGE MD) Blood Pressure Mean: 75 Progress Progress Note #1: Time: 09:25 Progress Note Bedside EKG shows sinus rhythm without features concerning for acute pathology. Fluid resuscitation of 1L LR started. Troponin ordered due to complaint of epigastric discomfort to RO concern for possible NV. Progress Note #2: Time: 10:16 Progress Note Hypokalemia of 2.9 noted on labs, likely contributing to irregular heart rate palpitations - pt already receiving 1L LR. (RODY MAI) Initial ECG Impression Date: Aug 05, 2022 Initial ECG Impression Time: 09:19 Initial ECG Rate: 99 Initial ECG Rhythm: Normal Sinus Comment Sinus rhythm with slightly prolonged OH intervals at [address] elevation or depression. No axis deviation. (COLIN GEORGE MD) Departure Impression Primary Impression: Hypokalemia Additional Impressions: Palpitations Diarrhea Qualified Codes: R19.7 - Diarrhea, unspecified Heart murmur Disposition: HOME, SELF-CARE Condition: Improved Departure-Patient Inst. Decision time for Depature: 11:27 (COLIN GEORGE MD) Referrals: ALIE HUGO APRN (PCP/Family) Primary Care Physician Patient Instructions: Hypokalemia, Palpitations ED Add. Discharge Instructions: Drink plenty of noncarbonated clear liquids to stay well-hydrated. Liquids that have some potassium replacement such as Pedialyte may be helpful. Eat some foods high in potassium such as potato, banana, etc. Avoid highly acidic foods that may irritate your stomach. Because you have had multiple episodes of electrolyte disturbances, stop hydro chlorothiazide until you can discuss further with your primary care provider. Follow-up with your primary care provider soon as possible. Discuss repeat labs to monitor your potassium level. Also discuss your heart murmur. If still present at your follow-up appointment, outpatient echocardiogram may be warranted. Return to care if you have worsening of symptoms despite following these instructions. All discharge instructions reviewed with patient and/or family. Voiced understanding. Medical Student Attestation and Attending Note: I have personally interviewed and examined this patient along with Rody novak, MS4. I have reviewed student documentation including history, physical, and assessments. I agree with the documentation except where otherwise noted. Patient experiences chronic GI symptoms related to her diabetes medications. She reports her epigastric discomfort and lower chest discomfort is related to these GI issues. Labs were obtained including BMP, magnesium, and troponin. Potassium was significantly low at 2.9. She had mild hyperglycemia. Labs were otherwise unremarkable and reviewed in their entirety. Patient received a total of 1 L LR and 1 L normal saline. IV potassium 10 mEq was infused and followed by 20 mEq orally. See discharge instructions for further discussion. Exam: General: Alert, oriented, no acute distress, well developed HEENT: Normocephalic and atraumatic Heart: Regular rate and rhythm, systolic murmur Lungs: Clear to auscultation bilaterally with normal effort Abdomen: Soft, nontender, nondistended, normal bowel sounds Neuropsych: Alert, oriented, no focal deficits Skin: Warm and dry without rashes (COLIN GEORGE MD) Copy Copies To 1: [facility]/RODY DA SILVA Aug 05, 2022 10:26 COLIN GEORGE MD Aug 05, 2022 11:32
[2022-08-05] MEDS ORDERED: NS IV 500 ML 500 ML IV ONE ×2 (10:30→11:45)
[2022-08-05] MEDS ORDERED: POTASSIUM CL 10MEQ/50ML IVPB 50 ML IV ONE (10:30)
[2022-08-05] MEDS ORDERED: KCL 10 MEQ TAB (MICRO K) PO ONE (11:30)
[2022-08-05] MEDS ORDERED: ACETAMINOPHEN 500 MG TAB (TYLENOL) PO ONE (11:45)
[2022-08-05 12:15] VITALS: BP 142/84
== END 2022-08-05 12:15 | disposition home or self-care (01) ==
LOC: EDUNIT# 09:09 → ER 09:11
DX: E87.6 Hypokalemia (principal); R19.7 Diarrhea, unspecified; R01.1 Cardiac murmur, unspecified; I10 Essential (primary) hypertension; F41.9 Anxiety disorder, unspecified; E66.9 Obesity, unspecified; Z68.41 Body mass index [BMI] 40.0-44.9, adult; Z87.891 Personal history of nicotine dependence; Z79.899 Other long term (current) drug therapy
CPT/HCPCS: 36415; 80048; 83735; 84443; 84484; 85025; 93005; 93041